=== PATIENT | female | born 1995 | race Caucasian/White ===

== ENCOUNTER → 2017-10-09 | Outpatient (CLI) | payer BC ==
--- NOTE | 2017-10-10 08:06 | USB ---
Reason for exam: clinical finding. History: Taking hormonal contraceptives beginning at age 17. Physical Findings: Nurse did not find any significant physical abnormalities on exam. US Breast RT Right complete breast ultrasound includes all four quadrants, the retroareolar region and axilla. Finding demonstrates no cystic or solid lesion seen. Dense tissues seen throughout. These results were verbally communicated with the patient and result sheet given to the patient on 10/09/17. ASSESSMENT: Negative, BI-RAD 1 RECOMMENDATION: Routine screening mammogram of both breasts at age 41. Unless clinical indication to start sooner. Manage patient on a clinical basis. (if a palpable abnormality recurs the area can be rescanned)
== END | disposition home or self-care (01) ==
LOC: RADUSWWP 15:38
PROVIDERS: ATTEND Obstetrics & Gynecology
DX: N63.10 Unspecified lump in the right breast, unspecified quadrant (principal)

== ENCOUNTER → 2017-10-24 | Outpatient (CLI) | payer BC ==
[2017-10-24 14:07] VITALS: BP 115/76; PULSE 83; RESP 12; TEMP 99.3; BMI 19.5
--- NOTE | 2017-10-24 14:47 | P.GSHP ---
History of Present Illness H&P Date: 10/24/17 Patient is a 22 year old white female who noted a lump in her right breast. She had an ultrasound and was told this was ok, however, she had clear nipple discharge on the right side. She does not feel the lump in her breast at this time. She has had her nipples pierced for about 2 1/2 years. She has not had any problems in the past. No evidence of infection. Patient drinks coffee every day. She does not smoke, no second hand smoke exposure. She does not drink joanne. She does not eat chocolate. The fulness in her breast is not cyclical. Past Surgical history: none Past Medical history: none Menarche: 15 sexually active: yes, BCP on them for 6 years no family history: maternal great aunt skin cancer paternal great grand father: colon ROS: HEENT: none lung: none heart: none GI: none : none arthritis: none allergies: none bleeding: none Social: smoke: none alcohol: occasional drugs: none - Constitutional Constitutional: Denies chills, Denies fever - EENT Eyes: denies blurred vision (wears contacts), denies pain Ears: deny: decreased hearing, tinnitus Ears, nose, mouth and throat: Denies headache, Denies sore throat - Breasts Breasts: bilateral: as per HPI - Cardiovascular Cardiovascular: Denies chest pain, Denies shortness of breath - Respiratory Respiratory: Denies cough, Denies 7 - Gastrointestinal Gastrointestinal: Denies abdominal pain, Denies diarrhea, Denies nausea, Denies vomiting - Genitourinary (Female) Genitourinary: Reports as per HPI, Denies dysuria, Denies hematuria - Menstruation Comment: BCP - Musculoskeletal Musculoskeletal: Reports as per HPI - Integumentary Integumentary: Denies pruritus, Denies rash - Neurological Neurological: Denies numbness, Denies weakness - Psychiatric Psychiatric: Reports anxiety, Reports depression - Endocrine Endocrine: Denies fatigue, Denies weight change - Hematologic/Lymphatic Comment: none - Allergic/Immunologic Allergic/Immunologic: Reports as per HPI Past Medical History Past Medical History: No Reported History History of Any Multi-Drug Resistant Organisms: None Reported Past Surgical History: No Surgical Hx Reported Past Psychological History: No Psychological Hx Reported Smoking Status: Never smoker Past Alcohol Use History: None Reported Past Drug Use History: None Reported Medications and Allergies Home Medications Medication Instructions Recorded Confirmed Type Lo Loesterin Controll 1 tab PO DAILY 10/06/15 10/24/17 History Allergies Allergy/AdvReac Type Severity Reaction Status Date / Time No Known Allergies Allergy Verified 10/24/17 14:02 Surgical - Exam Vital Signs Temp Pulse Resp BP Pulse Ox 99.3 F 83 12 115/76 99 10/24/17 14:02 10/24/17 14:02 10/24/17 14:02 10/24/17 14:02 10/24/17 14:02 - General well developed, well nourished, no distress - Eyes normal ocular movement, no icteric - ENT no hearing loss, no congestion - Neck no masses, trachea midline - Respiratory normal respiratory effort, clear to auscultation - Cardiovascular Rhythm: regular Heart Sounds: normal: S1, S2 - Abdomen Abdomen: soft, non tender, no guarding, no rigid, no rebound - Neurologic no disoriented, no combative - Musculoskeletal normal gait, normal posture - Psychiatric oriented to time, oriented to person, oriented to place, speech is normal, memory intact right breast: no dominate masses or nodules, fibrocystic disease right axilla: no adenopathy of concern left breast: no dominate masses or nodules, fibrocystic disease left axilla: no adenopathy of concern bilateral nipple piercing Results ultrasound report reviewed Assessment and Plan Assessment: Impression: 1. fibrocystic breast disease Plan: 1. decrease caffeine intake 2. follow up if any questions or concerns cc: Dr. Whittaker, Dr. Archibald
== END | disposition home or self-care (01) ==
LOC: WWCWWP 13:53
PROVIDERS: ATTEND Surgery
DX: Z53.9 Procedure and treatment not carried out, unspecified reason (principal)

== ENCOUNTER 2017-10-30 21:15 | Emergency (ER) | payer BC ==
--- NOTE | 2017-10-30 22:25 | ED ---
Skin/Abscess/FB HPI - General Chief complaint: Skin/Abscess/Foreign Body Stated complaint: poss infection on nose Time Seen by Provider: 10/30/17 21:45 Source: patient Mode of arrival: ambulatory Limitations: no limitations - History of Present Illness Initial comments: This is a 22 yo female with no PMH who presents today for CC of irritation of nose ring. Pt states that she got her nose pierced 3 months ago and has had "issues with it ever since", she was told by another special makeup fx artist instructor that she had an irritation bump. Pt noticed some crusting and redness near the ring and presented today to make sure she didnt have an infection. Pt denies current fever, chills, night sweats, spreading erythema, facial swelling. Patient denies any recent fever, chills, shortness of breath, chest pain, back pain, abdominal pain, nausea or vomiting, numbness or tingling, dysuria or hematuria, constipation or diarrhea, headaches or visual changes, or any other complaints. - Related Data Home Medications Medication Instructions Recorded Confirmed Lo Loesterin Controll 1 tab PO DAILY 10/06/15 10/30/17 Allergies Allergy/AdvReac Type Severity Reaction Status Date / Time No Known Allergies Allergy Verified 10/30/17 21:34 Review of Systems ROS Statement: Those systems with pertinent positive or pertinent negative responses have been documented in the HPI. ROS Other: All systems not noted in ROS Statement are negative. Constitutional: Denies: fever, chills, night sweats ENT: Reports: other (irritation at left nose ring) Respiratory: Denies: cough, dyspnea Cardiovascular: Denies: chest pain, palpitations Endocrine: Denies: fatigue Gastrointestinal: Denies: abdominal pain, nausea, vomiting Genitourinary: Denies: urgency, dysuria Musculoskeletal: Denies: back pain Skin: Reports: as per HPI. Denies: rash, lesions Past Medical History Past Medical History: No Reported History Additional Past Medical History / Comment(s): kidney infection History of Any Multi-Drug Resistant Organisms: None Reported Past Surgical History: No Surgical Hx Reported Past Psychological History: No Psychological Hx Reported Smoking Status: Never smoker Past Alcohol Use History: None Reported Past Drug Use History: None Reported General Exam - General Exam Comments Initial Comments: General: The patient is awake and alert, in no distress, and does not appear acutely ill. Eye: Pupils are equal, round and reactive to light, extra-ocular movements are intact. No nystagmus. There is normal conjunctiva bilaterally. No signs of icterus. Ears, nose, mouth and throat: There are moist mucous membranes and no oral lesions. Neck: The neck is supple, there is no tenderness or JVD. Cardiovascular: There is a regular rate and rhythm. No murmur, rub or gallop is appreciated. Respiratory: Lungs are clear to auscultation, respirations are non-labored, breath sounds are equal. No wheezes, stridor, rales, or rhonchi.. Neurological: A&O x 3. CN II-XII intact, There are no obvious motor or sensory deficits. Coordination appears grossly intact. Speech is normal. Skin: Skin is warm and dry and no rashes or lesions are noted. Small raised area at opening of left nare nose ring. no signs of surrounding erythema or edema. no purulent discharge. No facial swelling. No palpable LN. Psychiatric: Cooperative, appropriate mood & affect, normal judgment. Limitations: no limitations Course Vital Signs 10/30/17 21:28 Temperature 98.2 F Pulse Rate 107 H Respiratory 20 Rate Blood Pressure 123/81 O2 Sat by Pulse 100 Oximetry Medical Decision Making - Medical Decision Making Pt evaluated by myself and Dr Jack at this time we feel pt is having a local reaction to nickel from her nose ring, there are no signs of local infection or abscess or systemic reactions at this time. Pt VS stable afebrile. Pt was encouraged to change to a silver nose ring, and educated on proper nose ring care. Pt agreed with plan and was d/c in stable condition with PCP f/u in 1-2 days if symptoms persist, worsen or change. Disposition Clinical Impression: Nickel allergy Disposition: HOME SELF-CARE Condition: Good Additional Instructions: Please use nose ring cleansers as discussed. Please follow-up with family doctor in the next 2 days of symptoms have not improved. Please return to emergency room if the symptoms increase or worsen or for any other concerns. Is patient prescribed a controlled substance at d/c from ED?: No Referrals: Will White DO [Primary Care Provider] - 1-2 days Time of Disposition: 22:25
[2017-10-30 22:33] VITALS: BP 104/71; PULSE 80; RESP 18; TEMP 98.1
== END 2017-10-30 22:33 | disposition home or self-care (01) ==
LOC: EC 21:15
DX: T78.49XA Other allergy, initial encounter (principal); Z79.3 Long term (current) use of hormonal contraceptives
CPT/HCPCS: 99283

== ENCOUNTER → 2019-05-18 | Outpatient (CLI) | payer BC ==
--- NOTE | 2019-05-18 11:05 | USB ---
Reason for exam: clinical finding. History: Taking hormonal contraceptives beginning at age 17. Physical Findings: Nurse Summary: bilateral nipple piercings/nodularity, all soft, movable (nurse ts). US Breast RT Right complete breast ultrasound includes all four quadrants, the retroareolar region and axilla. Finding demonstrates no cystic or solid lesion seen. Dense tissue throughout. No suspicious sonographic abnormality. These results were verbally communicated with the patient and result sheet given to the patient on 05/18/19. ASSESSMENT: Negative, BI-RAD 1 RECOMMENDATION: Routine screening mammogram of both breasts at age 41. (or sooner if clinically indicated)
== END | disposition home or self-care (01) ==
LOC: RADUSWWP 10:12
PROVIDERS: ATTEND Surgery
DX: N64.52 Nipple discharge (principal)

== ENCOUNTER → 2021-01-03 | Outpatient (CLI) | payer BC | END | disposition home or self-care (01) | LOC: LABWHC1 15:09 | PROVIDERS: ATTEND Obstetrics & Gynecology | DX: O20.0 Threatened abortion (principal); Z3A.00 Weeks of gestation of pregnancy not specified | CPT/HCPCS: 36415; 84702 ==

== ENCOUNTER 2024-04-18 17:00 | Outpatient (CLI) | payer BC ==
[2024-04-18 17:23] LABS: Glucose,Whole Blood 114 mg/dL (70-110)
[2024-04-18 19:02] VITALS: RESP 16
[2024-04-18 19:06] LABS: ALT 14 U/L (4-34); AST 22 U/L (14-36); African American GFR (CKD) >90 (>60 ml/min/1.73 sqM); Albumin 3.2 g/dL (3.5-5.0); Alkaline Phosphatase 105 U/L (38-126); Anion Gap 7 mmol/L; Blood Urea Nitrogen 5 mg/dL (7-17); Calcium 8.7 mg/dL (8.4-10.2); Carbon Dioxide 22 mmol/L (22-30); Chloride 104 mmol/L (98-107); Glucose 88 mg/dL (74-99); Non-African American GFR(CKD) >90 (>60 ml/min/1.73 sqM); Potassium 3.8 mmol/L (3.5-5.1); Sodium 133 mmol/L (137-145); Total Bilirubin 0.3 mg/dL (0.2-1.3); Total Protein 5.7 g/dL (6.3-8.2)
[2024-04-18 19:39] VITALS: BP 103/56; PULSE 88; TEMP 98.1
--- NOTE | 2024-05-10 12:40 | P.MSEPDOC ---
Presenting Problems - Arrival Data Date of Arrival on Unit: 04/18/24 Time of Arrival on Unit: 17:04 Mode of Transport: Wheelchair - Complaint OB-Reason for Admission/Chief Complaint: Other Comment: pt 34 6/7 weeks gestation arrived c/o being dizzy for the last couple of days. pt denies any nausea , vomitting or diarrhea or any problems with her Medical History - Information : 1 Para: 0 Term: 0 : 0 Abortions: Spontaneous or Elective: 0 Number of Living Children: 0 - Gestational Age Gestational Age by ISAIAH (wks/days): 34 Weeks and 6 Days Review of Systems - Review of Systems Constitutional: No problems Breast: No problems ENT: No problems Cardiovascular: No problems Respiratory: No problems Gastrointestinal: No problems Genitourinary: No problems Musculoskeletal: No problems Neurological: Dizziness Skin: No problems Vital Signs - Temperature Temperature: 98.1 F Temperature Source: Oral - Pulse Right Brachial Pulse Rate: 88 Pulse Assessment Method: Automatic Cuff - Respirations Respiratory Rate: 16 Oxygen Delivery Method: Room Air O2 Sat by Pulse Oximetry: 99 - Blood Pressure Right Arm Blood Pressure: 103/56 Blood Pressure Mean: 71 Blood Pressure Source: Automatic Cuff Medical Screen Scoring - Cervical Exam Dilation (cm): 0 Membranes: Intact - Uterine Contractions Frequency From (mins): 0 Frequency To (mins): 0 Intensity: Mild - Assessment - Baby A Baseline FHR: 130 Heart Rate - NICHD Category: Category I (Normal) NST: Reactive Physician Notification - Physician Notified Physician Notified Date: 04/18/24 Physician Notified Time: 17:52 Physician: DR REYES - Notification Comment Comment: MAY DISCHARGE PATIENT TO HOME WITH INSTRUCTIONS Maternal Triage Index - Non-Urgent/Priority 4 Non-Urgent Priority 4: Yes Criteria Met for Priority 4: pt arrived c/o dizziness. NST reative. othostatic B/P done, orally hydrated, CMP lab work done.. dr daugherty called with B/P RESULTS AND LAB AND NEW ORDERS RECEIVED Disposition - Disposition OB Disposition: Discharge to home Discharge Date: 04/18/24 Discharge Time: 19:21 I agree with the RN Medical Screening Exam: Yes Physician's MSE Comment: I have neither seen nor examined the patient Case reviewed; plan agreed upon as documented in EMR&OBIX.: Yes Diagnosis: MATERNAL CARE FOR PROBLEM, UNSP, THIRD * DO NOT USE *
== END 2024-04-18 19:20 | disposition home or self-care (01) ==
LOC: FBPOP 17:00
PROVIDERS: ATTEND Obstetrics & Gynecology
DX: O36.93X0 Maternal care for fetal problem, unspecified, third trimester, not applicable or unspecified (principal); Z3A.34 34 weeks gestation of pregnancy; Z91.048 Other nonmedicinal substance allergy status
CPT/HCPCS: 59025; 80053; 99213

== ENCOUNTER 2024-05-20 08:04 | Inpatient (IN) | payer OTHER ==
[2024-05-20] MEDS ORDERED: miSOPROStoL 200 MCG TAB RECTAL PRN (08:30)
[2024-05-20] MEDS ORDERED: TRANEXAMIC 1,000 MG/100ML-NACL 1,000 MG in EMPTY BAG 1 BAG IV PRN (08:30)
[2024-05-20] MEDS ORDERED: OXYTOCIN 10 UNIT/ML 1 ML VIAL IM PRN (08:30)
[2024-05-20] MEDS ORDERED: miSOPROStoL 200 MCG TAB PO PRN (08:30)
[2024-05-20] MEDS ORDERED: TERBUTALINE 1 MG/ML VIAL SQ PRN (08:30)
[2024-05-20] MEDS ORDERED: METHYLERGONOVINE 0.2 MG/ML 1 ML AMP IM PRN (08:30)
[2024-05-20] MEDS ORDERED: OXYTOCIN 30 UNITS/500 ML NS 30 UNIT in SALINE 1 500ML.BAG IV SCH ×2 (08:30→17:45)
[2024-05-20] MEDS ORDERED: CARBOPROST TROMETHAMINE 250 MCG/ML 1 ML AMP IM PRN (08:30)
--- NOTE | 2024-05-20 08:44 | P.HPOB ---
History of Present Illness H&P Date: 05/20/24 Chief Complaint: Spontaneous rupture of membranes 29-year-old G1, P0 presents at 39 weeks and 1 day complaining of spontaneous rupture of membranes at 7 AM today. She was supriya every few minutes. Her cervix is 5 cm dilated, 90% effaced, -2 station. heart tones are category 1 Review of Systems All systems: negative Constitutional: Denies chills, Denies fever Eyes: denies blurred vision, denies pain Ears, nose, mouth and throat: Denies headache, Denies sore throat Cardiovascular: Denies chest pain, Denies shortness of breath Respiratory: Denies cough Gastrointestinal: Denies abdominal pain, Denies diarrhea, Denies nausea, Denies vomiting Genitourinary: Denies dysuria, Denies hematuria Musculoskeletal: Denies myalgias Integumentary: Denies pruritus, Denies rash Neurological: Denies numbness, Denies weakness Psychiatric: Denies anxiety, Denies depression Endocrine: Denies fatigue, Denies weight change Past Medical History Past Medical History: No Reported History Additional Past Medical History / Comment(s): kidney infection History of Any Multi-Drug Resistant Organisms: None Reported Past Surgical History: No Surgical Hx Reported Smoking Status: Former smoker Medications and Allergies Home Medications Medication Instructions Recorded Confirmed Type Citalopram Hydrobromide [CeleXA] 20 mg PO DAILY 04/18/24 05/20/24 History Pnv No.175/Iron Fum/Folic Acid 1 tab PO DAILY 04/18/24 05/20/24 History [ Complete Tablet] Aspirin 81 mg PO DAILY 05/20/24 05/20/24 History Allergies Allergy/AdvReac Type Severity Reaction Status Date / Time nickel AdvReac Swelling Unverified 05/20/24 08:23 Exam Osteopathic Statement: *. No significant issues noted on an osteopathic structural exam other than those noted in the History and Physical/Consult. Intake and Output 05/19/24 05/20/24 05/20/24 22:59 06:59 14:59 Other: Weight 67.132 kg Heart: Regular rate and rhythm Lungs: Clear to auscultation bilaterally Abdomen: Soft, nontender Extremities: Negative Homans sign Assessment and Plan (1) Spontaneous rupture of membranes Current Visit: Yes Status: Acute Code(s): [id number] - SNOMED Code(s): 628208545 (2) Normal labor Current Visit: Yes Status: Acute Code(s): O80 - ENCOUNTER FOR FULL-TERM UNCOMPLICATED DELIVERY; Z37.9 - OUTCOME OF DELIVERY, UNSPECIFIED SNOMED Code(s): 66998869 Plan: 1. Admit to family birthplace 2. Expectant management 3. Epidural for pain management 4. Anticipate normal vaginal delivery
[2024-05-20] MEDS: LACTATED RINGERS 1,000 ML IV SCH (08:46)
[2024-05-20 09:25] LABS: Basophils % (A) 0 %; Eosinophils % (A) 1 %; HCT 37.7 % (34.0-46.0); HGB 12.4 gm/dL (11.4-16.0); Lymphocytes # (A) 2.8 k/uL (1.0-4.8); Lymphocytes % (A) 35 %; MCH 31.9 pg (25.0-35.0); MCV 96.8 fL (80.0-100.0); Mean Platelet Volume 8.7; Monocytes # (A) 0.5 k/uL (0-1.0); Monocytes % (A) 7 %; Neutrophils # (A) 4.5 k/uL (1.3-7.7); Neutrophils % (A) 56 %; Platelet Count 227 k/uL (150-450); RBC 3.89 m/uL (3.80-5.40); RDW 13.1 % (11.5-15.5)
[2024-05-20] MEDS ORDERED: fentaNYL (PF) 50 MCG/ML 5 ML AMP ONE (09:32)
[2024-05-20] MEDS ORDERED: SODIUM CHLORIDE 0.9% 250 ML BAG ONE (09:32)
[2024-05-20] MEDS ORDERED: ROPIVACAINE 5 MG/ML 30 ML VIAL ONE (09:32)
[2024-05-20 10:40] VITALS: RESP 16
[2024-05-20] MEDS: OXYTOCIN 30 UNITS/500 ML NS 30 UNIT in SALINE 1 500ML.BAG IV SCH (16:47)
[2024-05-20] MEDS: LIDOCAINE 0.5% (PF) 5 MG/ML (50 ML SDV) SQ PRN (16:48)
[2024-05-20] MEDS ORDERED: diphenhydrAMINE 50 MG CAP PO PRN (17:36)
[2024-05-20] MEDS ORDERED: diphenhydrAMINE 25 MG CAP PO PRN (17:36)
[2024-05-20] MEDS ORDERED: HYDROCORTISONE 2.5% RECTAL CREAM 30 GM TUBE RECTAL PRN (17:36)
[2024-05-20] MEDS ORDERED: LANOLIN CREAM 1 GM TUBE TOPICAL PRN (17:36)
[2024-05-20] MEDS ORDERED: ZOLPIDEM 5 MG TAB PO PRN (17:36)
[2024-05-20] MEDS ORDERED: diphenhydrAMINE 50 MG/ML 1 ML VIAL IVP PRN ×2 (17:36)
[2024-05-20] MEDS ORDERED: SIMETHICONE 80 MG CHEWABLE PO PRN (17:36)
[2024-05-20] MEDS: BENZOCAINE/MENTHOL SPRAY 1 GM/SPRAY AEROSOL TOPICAL PRN (18:02)
[2024-05-20] MEDS: IBUPROFEN 800 MG TAB PO PRN (18:42)
[2024-05-20] MEDS: SENNOSIDES-DOCUSATE SODIUM 1 EACH TAB PO SCH (21:38)
[2024-05-20] MEDS: MEASLES-MUMPS-RUBELLA VACC/PF 12,500 UNIT/0.5 ML VIAL SQ ONE (22:20)
[2024-05-20] MEDS: Rhogam IMMUNE GLOBULIN 1,500 UNIT/1 ML IM ONE (22:22)
[2024-05-21 05:20] LABS: Basophils % (A) 0 %; Eosinophils % (A) 0 %; HCT 33.7 % (34.0-46.0); HGB 10.9 gm/dL (11.4-16.0); Hypochromasia Slight; Lymphocytes # (A) 2.1 k/uL (1.0-4.8); Lymphocytes % (A) 15 %; MCH 32.9 pg (25.0-35.0); MCHC 32.4 g/dL (31.0-37.0); MCV 101.5 fL (80.0-100.0); Macrocytosis Slight; Mean Platelet Volume 8.5; Monocytes # (A) 0.8 k/uL (0-1.0); Monocytes % (A) 6 %; Neutrophils % (A) 78 %; Platelet Count 182 k/uL (150-450); RBC 3.32 m/uL (3.80-5.40); RDW 13.1 % (11.5-15.5); WBC 14.1 k/uL (3.8-10.6)
[2024-05-21] MEDS: ACETAMINOPHEN TAB 500 MG TAB PO PRN (08:09)
[2024-05-21 08:16] VITALS: BP 95/51; PULSE 71; TEMP 98.7
--- NOTE | 2024-05-21 08:21 | P.PROBDLV ---
Vaginal Delivery Note - . Vaginal Delivery Note: Date of Service 05/20/2024 29-year-old G1, P0 presents at 39 weeks and 1 day complaining of spontaneous rupture of membranes at 7 AM today. She was supriya every few minutes. Her cervix is 5 cm dilated, 90% effaced, -2 station. heart tones are category 1. Patient was admitted to [facility] and got an epidural. Her cervix was completely dilated at 1454. She pushed, delivered a viable male infant over intact perineum under epidural anesthesia. Head delivered OA, anterior shoulder which was the right shoulder was attempted to be delivered with gentle downward guidance but was not moving. Shoulder dystocia was identified. Patient laid all the way back placed in Evelyn position. Then with maternal effort she pushed in the anterior shoulder delivered gentle downward guidance followed by posterior shoulder and rest of body. Nose and mouth bulb suction, clear clamped and cut, placed on mother's abdomen. Apgars 7, 9, weight 8 pounds 5 ounces. Placenta delivered spontaneously, intact with three-vessel cord at 1646. Vagina, cervix, perineum inspected. First-degree midline laceration was repaired with 3-0 Vicryl. Estimated blood loss 300 mL. Mother and baby in stable condition.
--- NOTE | 2024-05-21 08:23 | P.DS ---
Providers Date of admission: 05/20/24 08:20 Expected date of discharge: 05/21/24 Attending physician: Arminda Bruner Primary care physician: Stated None - Discharge Diagnosis(es) (1) Spontaneous rupture of membranes Current Visit: Yes Status: Resolved (2) Normal labor Current Visit: Yes Status: Resolved (3) Status post normal vaginal delivery Current Visit: Yes Status: Acute (4) Shoulder dystocia during labor and delivery Current Visit: Yes Status: Acute Hospital Course: Patient presented with spontaneous rupture of membranes and in labor. She underwent a normal vaginal delivery but did have a mild short shoulder dystocia. Postoperative course has been uneventful. She denies nausea, vomiting, chest pain, shortness of breath or calf pain. Patient will be discharged home day #1 in stable condition to follow-up with me in 6 weeks. Plan - Discharge Summary New Discharge Prescriptions: New Ibuprofen [Motrin] 800 mg PO Q8HR PRN #30 tab PRN Reason: Pain Discontinued Aspirin 81 mg PO DAILY No Action Citalopram Hydrobromide [CeleXA] 20 mg PO DAILY Pnv No.175/Iron Fum/Folic Acid [ Complete Tablet] 1 tab PO DAILY Discharge Medication List Citalopram Hydrobromide [CeleXA] 20 mg PO DAILY 04/18/24 [History] Pnv No.175/Iron Fum/Folic Acid [ Complete Tablet] 1 tab PO DAILY 04/18/24 [History] Ibuprofen [Motrin] 800 mg PO Q8HR PRN #30 tab 05/21/24 [Rx] Follow up Appointment(s)/Referral(s): Arminda Bruner DO [Doctor of Osteopathic Medicine] - 6 Weeks Discharge Disposition: HOME SELF-CARE
== END 2024-05-21 18:15 | disposition home or self-care (01) | DRG 560 ==
LOC: FBPOP 08:04 → 4FBP 08:20
PROVIDERS: ADMIT Obstetrics & Gynecology; ATTEND Obstetrics & Gynecology
PROC: 10E0XZZ Delivery of Products of Conception, External Approach (ICD-10-PCS; principal; 2024-05-20)
PROC: 0HQ9XZZ Repair Perineum Skin, External Approach (ICD-10-PCS; 2024-05-20)
DX: O66.0 Obstructed labor due to shoulder dystocia (principal); Z37.0 Single live birth; O70.0 First degree perineal laceration during delivery; Z3A.39 39 weeks gestation of pregnancy; Z87.891 Personal history of nicotine dependence; Z79.82 Long term (current) use of aspirin; Z79.899 Other long term (current) drug therapy
CPT/HCPCS: 59025; 84112; 85025; 85461; 86850; 86870; 86880; 86900; 86901; 90707; 99213

== ENCOUNTER 2024-06-11 21:51 | Emergency (ER) | payer OTHER ==
[2024-06-11 22:18] VITALS: RESP 20
[2024-06-11] MEDS: IBUPROFEN 800 MG TAB PO STA (23:26)
[2024-06-11] MEDS: ACETAMINOPHEN TAB 500 MG TAB PO STA (23:26)
--- NOTE | 2024-06-11 23:46 | ED ---
General Adult HPI - General Chief complaint: Fever Stated complaint: Breast Pain Time Seen by Provider: 06/11/24 22:38 Source: patient Mode of arrival: ambulatory Limitations: no limitations - History of Present Illness Initial comments: 29-year-old female presenting with chief complaint of right breast pain. Patient is currently 3 weeks and breast-feeding. She reports that she is having some redness and tenderness around the breast. She developed a fever today. She has been taking Motrin for her pain. No vomiting. Patient has tried increased pumping but her pain is still worsening. She was unable to get in with her SEAT MAKER today. No drainage or bleeding. - Related Data Home Medications Medication Instructions Recorded Confirmed Citalopram Hydrobromide [CeleXA] 20 mg PO DAILY 04/18/24 05/20/24 Pnv No.175/Iron Fum/Folic Acid 1 tab PO DAILY 04/18/24 05/20/24 [ Complete Tablet] Previous Rx's Medication Instructions Recorded Ibuprofen [Motrin] 800 mg PO Q8HR PRN #30 tab 05/21/24 Dicloxacillin [Dynapen] 500 mg PO Q6H 10 Days #40 capsule 06/11/24 Allergies Allergy/AdvReac Type Severity Reaction Status Date / Time nickel AdvReac Swelling Verified 05/20/24 17:39 Review of Systems ROS Statement: Those systems with pertinent positive or pertinent negative responses have been documented in the HPI. ROS Other: All systems not noted in ROS Statement are negative. Past Medical History Past Medical History: No Reported History Additional Past Medical History / Comment(s): kidney infection History of Any Multi-Drug Resistant Organisms: None Reported Past Surgical History: No Surgical Hx Reported Additional Past Surgical History / Comment(s): vaginal Past Anesthesia/Blood Transfusion Reactions: No Reported Reaction Past Psychological History: No Psychological Hx Reported Smoking Status: Vaper Past Alcohol Use History: None Reported Past Drug Use History: None Reported - Past Family History Mother Family Medical History: No Reported History General Exam Limitations: no limitations General appearance: alert, in no apparent distress Head exam: Present: atraumatic, normocephalic, normal inspection Eye exam: Present: normal appearance, EOMI Neck exam: Present: normal inspection. Absent: meningismus Respiratory exam: Absent: respiratory distress Cardiovascular Exam: Present: regular rate Neurological exam: Present: alert, oriented X3 Psychiatric exam: Present: normal affect, normal mood Skin exam: Present: erythema (Right breast tenderness and erythema) Course Vital Signs 06/11/24 06/12/24 22:13 00:19 Temperature 102.9 F H 102.6 F H Pulse Rate 78 87 Respiratory 20 20 Rate Blood Pressure 111/71 113/74 O2 Sat by Pulse 99 98 Oximetry Medical Decision Making - Medical Decision Making Was pt. sent in by a medical professional or institution (PRAMOD Carrillo, OFFICE ADMINISTRATIVE ASSISTANT, urgent care, hospital, or intermediate...) When possible be specific @ -No Did you speak to anyone other than the patient for history (EMS, parent, family, police, friend...)? What history was obtained from this source @ -No Did you review nursing and triage notes (agree or disagree)? Why? @ -I reviewed and agree with nursing and triage notes Were old charts reviewed (outside hosp., previous admission, EMS record, old EKG, old radiological studies, urgent care reports/EKG's, intermediate records)? Report findings @ -No old charts were reviewed Differential Diagnosis (chest pain, altered mental status, abdominal pain women, abdominal pain men, vaginal bleeding, weakness, fever, dyspnea, syncope, headache, dizziness, GI bleed, back pain, seizure, CVA, palpatations, mental health, musculoskeletal)? @ -Differential includes mastitis, breast abscess, clogged milk duct, not an all-inclusive list EKG interpreted by me (3pts min.). @ -As above X-rays interpreted by me (1pt min.). @ -None done CT interpreted by me (1pt min.). @ -None done U/S interpreted by me (1pt. min.). @ -None done What testing was considered but not performed or refused? (CT, X-rays, U/S, labs)? Why? @ -None What meds were considered but not given or refused? Why? @ -None Did you discuss the management of the patient with other professionals (professionals i.e. PRAMOD Carrillo, OFFICE ADMINISTRATIVE ASSISTANT, lab, RT, psych nurse, sr. social media & mobile manager, meter repairer helper, teacher, fiscal officer, pillowcase sewer)? Give summary @ -No Was smoking cessation discussed for >3mins.? @ -No Was critical care preformed (if so, how long)? @ -No Were there social determinants of health that impacted care today? How? (Homelessness, low income, unemployed, alcoholism, drug addiction, transportation, low edu. Level, literacy, decrease access to med. care, chcf, rehab)? @ -No Was there de-escalation of care discussed even if they declined (Discuss DNR or withdrawal of care, Hospice)? DNR status @ -No What co-morbidities impacted this encounter? (DM, HTN, Smoking, COPD, CAD, Cancer, CVA, ARF, Chemo, Hep., AIDS, mental health diagnosis, sleep apnea, morbid obesity)? @ -None Was patient admitted / discharged? Hospital course, mention meds given and route, prescriptions, significant lab abnormalities, going to OR and other pertinent info. @ -29-year-old female presenting with chief complaint of breast pain and redness. She is currently breast-feeding and 3 weeks . She developed a fever today. On exam her breast is inflamed and erythematous, tender to the touch. Patient is febrile here, she recently took Motrin, she is given Tylenol. She is started on dicloxacillin. She is educated on the updated supportive management guidelines which advise cool compresses and no longer advise increased breast-feeding and pumping. You can continue to breast-feed and pump for comfort. Educated on signs of worsening infection. Follow-up with SEAT MAKER. Follow-up with PCP. Report back to ER with any new or worsening symptoms. Discussed return parameters and answered all questions. Patient conveyed verbal understanding and agreed to the plan. I discussed this case in detail with my attending Dr. Jack Undiagnosed new problem with uncertain prognosis? @ -No Drug Therapy requiring intensive monitoring for toxicity (Heparin, Nitro, Insulin, Cardizem)? @ -No Were any procedures done? @ -No Diagnosis/symptom? @ -Mastitis Acute, or Chronic, or Acute on Chronic? @ -Acute Uncomplicated (without systemic symptoms) or Complicated (systemic symptoms)? @ -Uncomplicated Side effects of treatment? @ -No Exacerbation, Progression, or Severe Exacerbation? @ -No Poses a threat to life or bodily function? How? (Chest pain, [place], [place], pneumonia, PE, COPD, DKA, ARF, appy, cholecystitis, CVA, Diverticulitis, Homicidal, Suicidal, threat to staff... and all critical care pts) @ -Potential, educated on signs of worsening infection Disposition Clinical Impression: Mastitis Disposition: HOME SELF-CARE Condition: Good Instructions (If sedation given, give patient instructions): Mastitis (ED) Additional Instructions: Follow-up with your SEAT MAKER. Report back to ER with any new or worsening symptoms. Current recommendations advise decreased breast stimulation and applying ice. You can still breast-feed for comfort and pump for comfort. Continue alternating Motrin and Tylenol. Prescriptions: Dicloxacillin [Dynapen] 500 mg PO Q6H 10 Days #40 capsule Is patient prescribed a controlled substance at d/c from ED?: No Referrals: Will White DO [Primary Care Provider] - 1-2 days Time of Disposition: 23:46
[2024-06-12] MEDS: DICLOXACILLIN 250 MG CAPSULE PO ONE (00:15)
[2024-06-12 00:21] VITALS: BP 113/74; PULSE 87; TEMP 102.6
== END 2024-06-11 22:53 | disposition home or self-care (01) ==
LOC: EC 21:51
DX: O91.23 Nonpurulent mastitis associated with lactation (principal); F17.290 Nicotine dependence, other tobacco product, uncomplicated; Z91.040 Latex allergy status
CPT/HCPCS: 99283

== ENCOUNTER 2024-07-18 19:58 | Emergency (ER) | payer OTHER ==
[2024-07-18 20:03] VITALS: RESP 16
[2024-07-18] MEDS: SODIUM CHLORIDE 0.9% 1,000 ML IV STA (21:20)
[2024-07-18 21:23] LABS: Basophils # (A) 0.06 10*3/uL (0.00-0.10); Basophils % (A) 0.8 %; Eosinophils # (A) 0.13 10*3/uL (0.04-0.35); Eosinophils % (A) 1.8 %; HCT 39.9 % (37.2-46.3); Lymphocytes # (A) 3.41 10*3/uL (0.90-5.00); Lymphocytes % (A) 46.3 %; MCH 32.6 pg (27.0-32.0); MCHC 35.1 g/dL (32.0-37.0); Mean Platelet Volume 9.8 fL (9.5-12.2); Monocytes % (A) 8.2 %; Neutrophils # (A) 3.15 10*3/uL (1.80-7.70); Neutrophils % (A) 42.8 %; Platelet Count 330 10*3/uL (140-440); RBC 4.29 10*6/uL (4.10-5.20); RDW 12.7 % (11.5-14.5); WBC 7.36 10*3/uL (4.50-10.00)
[2024-07-18 21:39] LABS: ALT 20 U/L (4-34); African American GFR (CKD) >90 (>60 ml/min/1.73 sqM); Albumin 4.8 g/dL (3.5-5.0); Anion Gap 10 mmol/L; Blood Urea Nitrogen 9 mg/dL (7-17); Calcium 9.7 mg/dL (8.4-10.2); Carbon Dioxide 26 mmol/L (22-30); Chloride 104 mmol/L (98-107); Glucose 70 mg/dL (74-99); Non-African American GFR(CKD) >90 (>60 ml/min/1.73 sqM); Sodium 140 mmol/L (137-145); Total Bilirubin 0.6 mg/dL (0.2-1.3); Total Protein 7.6 g/dL (6.3-8.2)
--- NOTE | 2024-07-18 21:39 | ED ---
General Adult HPI - General Source: patient Mode of arrival: ambulatory Limitations: no limitations <Remington Lainez - Last Filed: 07/19/24 22:45> - General Source: patient, RN notes reviewed, old records reviewed Mode of arrival: ambulatory Limitations: no limitations - History of Present Illness -: hour(s) (12) Location: head Radiation: non-radiation Severity scale (1-10): 0 Consistency: intermittent Improves with: none Worsens with: none Associated Symptoms: confusion, malaise, nausea/vomiting, syncope Treatments Prior to Arrival: none <Connor Meier - Last Filed: 07/22/24 03:15> - General Chief complaint: Seizure Stated complaint: Fall/Hit Head Time Seen by Provider: 07/18/24 20:49 - History of Present Illness Initial comments: 29-year-old female presenting with concerns that she may have had a seizure last night. She reports that last night around 1 AM she was standing and facing her boyfriend when her eyes rolled back and her body tensed up, she fell back and hit the back of her head on the floor. Her boyfriend states that she lost c onsciousness for few seconds then woke up. Patient reports that she does not remember much of what she was doing immediately before or after. She had no loss of bowel or bladder control. She did not bite her tongue. She has no history of seizures. Patient has had syncopal episodes in the past, however she reports that normally she gets typical symptoms of tinnitus, tunnel vision, etc. She reports that her family was concerned and Asking her to be evaluated in the ER so she decided to come tonight. No chest pain, difficulty breathing, abdominal pain, nausea, vomiting, vision or hearing changes, numbness, tingling, weakness. She does have headache where she hit her head. (Remington Lainez) 29 female with possible recent seizure versus syncopal event in the middle of the night. Patient did hit her head but otherwise has no complaints here in the ER he does have family history of concern for aneurysm (Connor Meier) - Related Data Home Medications Medication Instructions Recorded Confirmed Citalopram Hydrobromide [CeleXA] 20 mg PO DAILY 04/18/24 05/20/24 Pnv No.175/Iron Fum/Folic Acid 1 tab PO DAILY 04/18/24 05/20/24 [ Complete Tablet] Previous Rx's Medication Instructions Recorded Ibuprofen [Motrin] 800 mg PO Q8HR PRN #30 tab 05/21/24 Dicloxacillin [Dynapen] 500 mg PO Q6H 10 Days #40 capsule 06/11/24 Allergies Allergy/AdvReac Type Severity Reaction Status Date / Time nickel AdvReac Swelling Verified 07/18/24 20:03 Review of Systems ROS Other: All systems not noted in ROS Statement are negative. <Remington Lainez - Last Filed: 07/19/24 22:45> ROS Other: All systems not noted in ROS Statement are negative. <Connor Meier - Last Filed: 07/22/24 03:15> ROS Statement: Those systems with pertinent positive or pertinent negative responses have been documented in the HPI. Past Medical History Past Medical History: No Reported History Additional Past Medical History / Comment(s): kidney infection History of Any Multi-Drug Resistant Organisms: None Reported Past Surgical History: No Surgical Hx Reported Additional Past Surgical History / Comment(s): vaginal Past Anesthesia/Blood Transfusion Reactions: No Reported Reaction Past Psychological History: No Psychological Hx Reported Smoking Status: Vaper Past Alcohol Use History: Occasional Past Drug Use History: None Reported - Past Family History Mother Family Medical History: No Reported History <Remington Lainez - Last Filed: 07/19/24 22:45> General Exam Limitations: no limitations General appearance: alert, in no apparent distress Head exam: Present: atraumatic, normocephalic, normal inspection Eye exam: Present: normal appearance, PERRL, EOMI. Absent: periorbital swelling Pupils: Present: normal accommodation Neck exam: Present: normal inspection. Absent: meningismus Respiratory exam: Present: normal lung sounds bilaterally. Absent: respiratory distress, wheezes, rales, rhonchi, stridor Cardiovascular Exam: Present: regular rate, normal rhythm, normal heart sounds. Absent: systolic murmur, diastolic murmur, rubs, gallop, clicks Extremities exam: Present: normal inspection Neurological exam: Present: alert, oriented X3 Expanded Patient oriented to: Present: person, place, time Speech: Present: fluid speech Cranial nerves: EOM's Intact: Normal, Facial Sensation: Normal Cerebellar function: Finger to Nose: Normal, Heel to Figueredo: Normal Sensory exam: Upper Extremity Light Touch: Normal, Lower Extremity Light Touch: Normal Motor strength exam: RUE: 5, LUE: 5, RLE: 5, LLE: 5 Eye Response: (4) open spontaneously Motor Response: (6) obeys commands Verbal Response: (5) oriented [place] Total: 15 Psychiatric exam: Present: normal affect, normal mood Skin exam: Present: warm, dry, normal color <Remington Lainez - Last Filed: 07/19/24 22:45> General appearance: alert, in no apparent distress Head exam: Present: atraumatic, normocephalic, normal inspection Eye exam: Present: normal appearance, PERRL, EOMI. Absent: scleral icterus, conjunctival injection, periorbital swelling ENT exam: Present: normal exam, mucous membranes moist Neck exam: Present: normal inspection. Absent: tenderness, meningismus, lymphadenopathy Respiratory exam: Present: normal lung sounds bilaterally. Absent: respiratory distress, wheezes, rales, rhonchi, stridor Cardiovascular Exam: Present: regular rate, normal rhythm, normal heart sounds. Absent: systolic murmur, diastolic murmur, rubs, gallop, clicks GI/Abdominal exam: Present: soft, normal bowel sounds. Absent: distended, tenderness, guarding, rebound, rigid Extremities exam: Present: normal inspection, full ROM, normal capillary refill. Absent: tenderness, pedal edema, joint swelling, calf tenderness Back exam: Present: normal inspection Neurological exam: Present: alert, oriented X3, CN II-XII intact Psychiatric exam: Present: normal affect, normal mood Skin exam: Present: warm, dry, intact, normal color. Absent: rash <Connor Meier - Last Filed: 07/22/24 03:15> Course <Connor Meier - Last Filed: 07/22/24 03:15> Vital Signs 07/18/24 07/19/24 20:00 01:31 Temperature 97.7 F 98.0 F Pulse Rate 74 83 Respiratory 16 16 Rate Blood Pressure 112/78 101/71 O2 Sat by Pulse 100 98 Oximetry - Reevaluation(s) Reevaluation #1: 07/22/24 03:15 Medical records reviewed (Connor Meier) Reevaluation #2: No recurrent seizure or syncopal event (Connor Meier) Reevaluation #3: Patient informed of results and questions answered (Connor Meier) Medical Decision Making - Lab Data Result diagrams: 07/18/24 21:00 07/18/24 21:00 <Remington Lainez - Last Filed: 07/19/24 22:45> - Lab Data Result diagrams: 07/18/24 21:00 07/18/24 21:00 - EKG Data -: EKG Interpreted by Me - Radiology Data Radiology results: report reviewed (CT brain and CTA head and neck negative for acute disease), image reviewed <Connor Meier - Last Filed: 07/22/24 03:15> - Medical Decision Making EKG shows sinus rhythm ventricular rate 63. VT interval 166. QRS 91. QT 407. QTc 415 Was pt. sent in by a medical professional or institution (, PA, MEDICATION SPECIALIST, urgent care, hospital, or group home...) When possible be specific @ -No Did you speak to anyone other than the patient for history (EMS, parent, family, police, friend...)? What history was obtained from this source @ -No Did you review nursing and triage notes (agree or disagree)? Why? @ -I reviewed and agree with nursing and triage notes Were old charts reviewed (outside hosp., previous admission, EMS record, old EKG, old radiological studies, urgent care reports/EKG's, group home records)? Report findings @ -No old charts were reviewed Differential Diagnosis (chest pain, altered mental status, abdominal pain women, abdominal pain men, vaginal bleeding, weakness, fever, dyspnea, syncope, headache, dizziness, GI bleed, back pain, seizure, CVA, palpatations, mental health, musculoskeletal)? @ -MDM Differential Syncope: Valvular disease, hypertrophic cardiomyopathy, pulmonary embolism, tamponade, tachycardia, bradycardia, [place], hypovolemia, hemorrhage, dissection, anemia, intracranial hemorrhage, seizure, hypoglycemia, carbon monoxide poisoning… this is not meant to be an all-inclusive list. EKG interpreted by me (3pts min.). @ -As above X-rays interpreted by me (1pt min.). @ -None done CT interpreted by me (1pt min.). @ -None done U/S interpreted by me (1pt. min.). @ -None done What testing was considered but not performed or refused? (CT, X-rays, U/S, labs)? Why? @ -None What meds were considered but not given or refused? Why? @ -None Did you discuss the management of the patient with other professionals (professionals i.e. Dr., PA, MEDICATION SPECIALIST, lab, RT, psych nurse, social media strategist, maintenance foreman, teacher, contracts officer, supervisor case loading)? Give summary @ -No Was smoking cessation discussed for >3mins.? @ -No Was critical care preformed (if so, how long)? @ -No Were there social determinants of health that impacted care today? How? (Homelessness, low income, unemployed, alcoholism, drug addiction, transportation, low edu. Level, literacy, decrease access to med. care, chcf, rehab)? @ -No Was there de-escalation of care discussed even if they declined (Discuss DNR or withdrawal of care, Hospice)? DNR status @ -No What co-morbidities impacted this encounter? (DM, HTN, Smoking, COPD, CAD, Cancer, CVA, ARF, Chemo, Hep., AIDS, mental health diagnosis, sleep apnea, morbid obesity)? @ -None Was patient admitted / discharged? Hospital course, mention meds given and route, prescriptions, significant lab abnormalities, going to OR and other pertinent info. @ -29-year-old female presenting with concerns that she may have had a seizure. History and physical examination are conducted. GCS 15 with no focal neurological deficits. Initial blood sugar was low at 70 and patient is given juice and crackers. Negative hCG. Negative urine toxicology. Remainder of lab work is essentially unremarkable. CT and CTA of the head are pending, patient is signed out to my attending Dr. Meier for further management and disposition Undiagnosed new problem with uncertain prognosis? @ -No Drug Therapy requiring intensive monitoring for toxicity (Heparin, Nitro, Insulin, Cardizem)? @ -No Were any procedures done? @ -No Diagnosis/symptom? @ -Default Acute, or Chronic, or Acute on Chronic? @ -Default Uncomplicated (without systemic symptoms) or Complicated (systemic symptoms)? @ -Default Side effects of treatment? @ -No Exacerbation, Progression, or Severe Exacerbation? @ -No Poses a threat to life or bodily function? How? (Chest pain, [place], [place], pneumonia, PE, COPD, DKA, ARF, appy, cholecystitis, CVA, Diverticulitis, Homicidal, Suicidal, threat to staff... and all critical care pts) @ -No (Remington Lainez) 29 female to ER with syncope or seizure. No acute findings here in the ER imaging is negative patient can be discharged home (Connor Meier) - Lab Data Lab Results 07/18/24 07/18/24 07/18/24 Range/Units 21:00 21:00 21:24 WBC 7.36 (4.50-10.00) 10*3/uL RBC 4.29 (4.10-5.20) 10*6/uL Hgb 14.0 (12.0-15.0) g/dL Hct 39.9 (37.2-46.3) % MCV 93.0 (80.0-97.0) fL MCH 32.6 H (27.0-32.0) pg MCHC 35.1 (32.0-37.0) g/dL Plt Count 330 (140-440) 10*3/uL MPV 9.8 (9.5-12.2) fL Immature Gran % (Auto) 0.1 % Neutrophils % 42.8 % Lymphocytes % 46.3 % Monocytes % 8.2 % Eosinophils % 1.8 % Basophils % 0.8 % Immature Gran # 0.01 (0.00-0.04) 10*3/uL Neutrophils # 3.15 (1.80-7.70) 10*3/uL Lymphocytes # 3.41 (0.90-5.00) 10*3/uL Monocytes # 0.60 (0.20-1.00) 10*3/uL Eosinophils # 0.13 (0.04-0.35) 10*3/uL Basophils # 0.06 (0.00-0.10) 10*3/uL Sodium 140 (137-145) mmol/L Potassium 4.0 (3.5-5.1) mmol/L Chloride 104 (98-107) mmol/L Carbon Dioxide 26 (22-30) mmol/L Anion Gap 10 mmol/L BUN 9 (7-17) mg/dL Creatinine 0.78 (0.52-1.04) mg/dL Est GFR (CKD-EPI)AfAm >90 (>60 ml/min/1.73 sqM) Est GFR (CKD-EPI)NonAf >90 (>60 ml/min/1.73 sqM) Glucose 70 L (74-99) mg/dL Calcium 9.7 (8.4-10.2) mg/dL Magnesium 1.9 (1.6-2.3) mg/dL Total Bilirubin 0.6 (0.2-1.3) mg/dL AST 33 (14-36) U/L ALT 20 (4-34) U/L Alkaline Phosphatase 62 (38-126) U/L Total Protein 7.6 (6.3-8.2) g/dL Albumin 4.8 (3.5-5.0) g/dL Urine Color Colorless Urine Appearance Cloudy H (Clear) Urine pH 6.0 (5.0-8.0) Ur Specific [place] 1.007 (1.001-1.035) Urine Protein Negative (Negative) Urine Glucose (UA) Negative (Negative) Urine Ketones Negative (Negative) Urine Blood Negative (Negative) Urine Nitrite Negative (Negative) Urine Bilirubin Negative (Negative) Urine Urobilinogen <2.0 (<2.0) mg/dL Ur Leukocyte Esterase Negative (Negative) Urine RBC 1 (0-5) /hpf Urine WBC 6 H (0-5) /hpf Ur Squamous Epith Cells 15 H (0-4) /hpf Amorphous Sediment Rare H (None) /hpf Urine Bacteria Rare H (None) /hpf Urine HCG, Qual (Not Detectd) Urine Opiates Screen Not Detected (NotDetected) Ur Oxycodone Screen Not Detected (NotDetected) Urine Methadone Screen Not Detected (NotDetected) Ur Barbiturates Screen Not Detected (NotDetected) U Tricyclic Antidepress Not Detected (NotDetected) Ur Phencyclidine Scrn Not Detected (NotDetected) Ur Amphetamines Screen Not Detected (NotDetected) U Methamphetamines Scrn Not Detected (NotDetected) U Benzodiazepines Scrn Not Detected (NotDetected) Urine Cocaine Screen Not Detected (NotDetected) U Marijuana (THC) Screen Not Detected (NotDetected) 05/03/25 Range/Units 21:24 WBC (4.50-10.00) 10*3/uL RBC (4.10-5.20) 10*6/uL Hgb (12.0-15.0) g/dL Hct (37.2-46.3) % MCV (80.0-97.0) fL MCH (27.0-32.0) pg MCHC (32.0-37.0) g/dL Plt Count (140-440) 10*3/uL MPV (9.5-12.2) fL Immature Gran % (Auto) % Neutrophils % % Lymphocytes % % Monocytes % % Eosinophils % % Basophils % % Immature Gran # (0.00-0.04) 10*3/uL Neutrophils # (1.80-7.70) 10*3/uL Lymphocytes # (0.90-5.00) 10*3/uL Monocytes # (0.20-1.00) 10*3/uL Eosinophils # (0.04-0.35) 10*3/uL Basophils # (0.00-0.10) 10*3/uL Sodium (137-145) mmol/L Potassium (3.5-5.1) mmol/L Chloride (98-107) mmol/L Carbon Dioxide (22-30) mmol/L Anion Gap mmol/L BUN (7-17) mg/dL Creatinine (0.52-1.04) mg/dL Est GFR (CKD-EPI)AfAm (>60 ml/min/1.73 sqM) Est GFR (CKD-EPI)NonAf (>60 ml/min/1.73 sqM) Glucose (74-99) mg/dL Calcium (8.4-10.2) mg/dL Magnesium (1.6-2.3) mg/dL Total Bilirubin (0.2-1.3) mg/dL AST (14-36) U/L ALT (4-34) U/L Alkaline Phosphatase (38-126) U/L Total Protein (6.3-8.2) g/dL Albumin (3.5-5.0) g/dL Urine Color Urine Appearance (Clear) Urine pH (5.0-8.0) Ur Specific [place] (1.001-1.035) Urine Protein (Negative) Urine Glucose (UA) (Negative) Urine Ketones (Negative) Urine Blood (Negative) Urine Nitrite (Negative) Urine Bilirubin (Negative) Urine Urobilinogen (<2.0) mg/dL Ur Leukocyte Esterase (Negative) Urine RBC (0-5) /hpf Urine WBC (0-5) /hpf Ur Squamous Epith Cells (0-4) /hpf Amorphous Sediment (None) /hpf Urine Bacteria (None) /hpf Urine HCG, Qual Not Detected (Not Detectd) Urine Opiates Screen (NotDetected) Ur Oxycodone Screen (NotDetected) Urine Methadone Screen (NotDetected) Ur Barbiturates Screen (NotDetected) U Tricyclic Antidepress (NotDetected) Ur Phencyclidine Scrn (NotDetected) Ur Amphetamines Screen (NotDetected) U Methamphetamines Scrn (NotDetected) U Benzodiazepines Scrn (NotDetected) Urine Cocaine Screen (NotDetected) U Marijuana (THC) Screen (NotDetected) Disposition <Remington Lainez - Last Filed: 07/19/24 22:45> Is patient prescribed a controlled substance at d/c from ED?: No Time of Disposition: 01:00 <Connor Meier - Last Filed: 07/22/24 03:15> Clinical Impression: Syncope Narrative: Versus Seizure (Connor Meier) Disposition: HOME SELF-CARE Condition: Fair Instructions (If sedation given, give patient instructions): Syncope (ED), New- Onset Seizure in Adults (ED) Referrals: Will White DO [STAFF PHYSICIAN] - 1-2 days
[2024-07-18 21:41] LABS: AST 33 U/L (14-36); Alkaline Phosphatase 62 U/L (38-126); Magnesium 1.9 mg/dL (1.6-2.3)
[2024-07-18 21:47] LABS: Amorphous Sediment,Urine Rare /hpf; Appearance,Urine Cloudy (Clear); Bacteria,Urine Rare /hpf; Bilirubin,Urine Negative (Negative); Blood,Urine Negative (Negative); Color,Urine Colorless; Glucose,Urine (UA) Negative (Negative); Ketones,Urine Negative (Negative); Leukocyte Esterase,Urine Negative (Negative); Nitrite,Urine Negative (Negative); Protein,Urine Negative (Negative); RBC,Urine 1 /hpf (0-5); Specific Gravity,Urine 1.007 (1.001-1.035); Squamous Epithelial Cell,Urine 15 /hpf (0-4); Urobilinogen,Urine <2.0 mg/dL (<2.0); WBC,Urine 6 /hpf (0-5)
[2024-07-18 22:23] LABS: Amphetamine Screen,Urine Not Detected (NotDetected); Barbiturate Screen,Urine Not Detected (NotDetected); Benzodiazepines Screen,Urine Not Detected (NotDetected); Cocaine Screen,Urine Not Detected (NotDetected); Methadone Screen, Urine Not Detected (NotDetected); Opiate Screen,Urine Not Detected (NotDetected); Oxycodone Screen, Urine Not Detected (NotDetected); Phencyclidine Screen,Urine Not Detected (NotDetected); Tricyclic Antidepressant,Urine Not Detected (NotDetected); Urn Cannabinoid Scrn Not Detected (NotDetected)
--- NOTE | 2024-07-19 00:13 | CT ---
EXAM: CT Head Without Intravenous Contrast CLINICAL HISTORY: ITS.REASON CT Reason: syncope with head injury TECHNIQUE: Axial computed tomography images of the head/brain without intravenous contrast. CTDI is 49.1 mGy and DLP is 1074 mGy-cm. This CT exam was performed using one or more of the following dose reduction techniques: automated exposure control, adjustment of the mA and/or kV according to patient size, and/or use of iterative reconstruction technique. COMPARISON: No relevant prior studies available. FINDINGS: Brain: Unremarkable. No hemorrhage. No significant white matter disease. No edema. Ventricles: Unremarkable. No ventriculomegaly. Bones/joints: Unremarkable. No acute fracture. Soft tissues: Unremarkable. Sinuses: Unremarkable as visualized. No acute sinusitis. Mastoid air cells: Unremarkable as visualized. No mastoid effusion. IMPRESSION: Normal head/brain CT.
[2024-07-19 01:33] VITALS: BP 101/71; PULSE 83; TEMP 98
--- NOTE | 2024-07-19 02:14 | CT ---
EXAM: CT Angiography Head With Intravenous Contrast CLINICAL HISTORY: ITS.REASON CT Reason: syncope TECHNIQUE: Axial computed tomographic angiography images of the head with intravenous contrast. CTDI is 22 mGy and DLP is 585.7 mGy-cm. This CT exam was performed using one or more of the following dose reduction techniques: automated exposure control, adjustment of the mA and/or kV according to patient size, and/or use of iterative reconstruction technique. MIP reconstructed images were created and reviewed. COMPARISON: No relevant prior studies available. FINDINGS: The dural venous sinuses are patent. The study is limited secondary to motion artifact. Right internal carotid artery: No acute findings. Intracranial segment is patent with no significant stenosis. No aneurysm. Right anterior cerebral artery: Unremarkable. No occlusion or significant stenosis. No aneurysm. Right middle cerebral artery: Unremarkable. No occlusion or significant stenosis. No aneurysm. Right posterior cerebral artery: Unremarkable. No occlusion or significant stenosis. No aneurysm. Right vertebral artery: Unremarkable as visualized. Left internal carotid artery: No acute findings. Intracranial segment is patent with no significant stenosis. No aneurysm. Left anterior cerebral artery: Unremarkable. No occlusion or significant stenosis. No aneurysm. Left middle cerebral artery: Unremarkable. No occlusion or significant stenosis. No aneurysm. Left posterior cerebral artery: Unremarkable. No occlusion or significant stenosis. No aneurysm. Left vertebral artery: Unremarkable as visualized. Basilar artery: Unremarkable. No occlusion or significant stenosis. No aneurysm. IMPRESSION: No evidence of large vessel occlusion in this limited study.
== END 2024-07-19 01:32 | disposition home or self-care (01) ==
LOC: EC 19:58
DX: R55 Syncope and collapse (principal); F17.290 Nicotine dependence, other tobacco product, uncomplicated; Z88.8 Allergy status to other drugs, medicaments and biological substances
CPT/HCPCS: 36415; 93005; 80053; 83735; 85025; 81001; 81025; 80306; 70496; 70450; 99284; 96360; Q9967